=== PATIENT | male | born 1960 | race Caucasian/White ===

== ENCOUNTER 2017-07-02 21:57 | Emergency (ER) | payer BC ==
[2017-07-02] MEDS: GLUCAGON,HUMAN RECOMBINANT 1 MG/ML VIAL. IV ×2 (22:45)
[2017-07-02] MEDS ORDERED: PROPOFOL 20 ML IV ×2 (23:14)
[2017-07-02 23:17] LABS: ADD MAN DIFF? NO
[2017-07-02 23:32] LABS: PARTIAL THROMBOPLASTIN TIME 27 SEC (24-38); PROTHROMBIN TIME PATIENT 12.5 SEC (11.7-14.0)
[2017-07-02 23:36] LABS: ANION GAP 10 (6-14); BLOOD UREA NITROGEN 10 mg/dL (8-26); BUN/CREATININE RATIO 9 (6-20); CALCIUM 8.3 mg/dL (8.5-10.1); CARBON DIOXIDE 28 mmol/L (21-32); CHLORIDE 103 mmol/L (98-107); CREATININE 1.1 mg/dL (0.7-1.3); GFR 69.8; GLUCOSE 101 mg/dL (70-99); POTASSIUM 3.8 mmol/L (3.5-5.1); SODIUM 141 mmol/L (136-145)
[2017-07-02 23:37] LABS: BASO % 1 % (0-3); EOS # 0.2 x10^3/uL (0.0-0.7); EOS % 4 % (0-3); HEMATOCRIT 46.9 % (39.0-53.0); HEMOGLOBIN 16.1 g/dL (13.0-17.5); LYMPH # 1.5 x10^3/uL (1.0-4.8); LYMPH % 26 % (24-48); MEAN CORPUSCULAR HEMOGLOBIN 33 pg (25-35); MEAN CORPUSCULAR HGB CONC 34 g/dL (31-37); MEAN CORPUSCULAR VOLUME 96 fL (79-100); MONO # 0.4 x10^3/uL (0.0-1.1); MONO % 6 % (0-9); NEUT # 3.6 x10^3uL (1.8-7.7); NEUT % 63 % (31-73); PLATELET COUNT 208 x10^3/uL (140-400); RED CELL DISTRIBUTION WIDTH 12.5 % (11.5-14.5); WHITE BLOOD COUNT 5.8 x10^3/uL (4.0-11.0)
[2017-07-02 23:47] LABS: ALBUMIN 3.7 g/dL (3.4-5.0); ALBUMIN/GLOBULIN RATIO 0.9 (1.0-1.7); ALK PHOS 78 U/L (46-116); ALT (SGPT) 51 U/L (16-63); AST (SGOT) 23 U/L (15-37); TOTAL BILIRUBIN 0.7 mg/dL (0.2-1.0); TOTAL PROTEIN 7.7 g/dL (6.4-8.2)
== END 2017-07-02 23:09 | disposition other institution (70) ==
LOC: ER 23:09
DX: T18.128A Food in esophagus causing other injury, initial encounter (principal); X58.XXXA Exposure to other specified factors, initial encounter; Y93.89 Activity, other specified; Y92.89 Other specified places as the place of occurrence of the external cause; Y99.8 Other external cause status
CPT/HCPCS: 36415; 80053; 85025; 85610; 85730; 96374; 99285-25; J1610; J2704

== ENCOUNTER → 2020-04-12 | Outpatient (CLI) | payer BC ==
[2017-07-02 23:43] VITALS: BP 177/80
[2020-04-12 13:28] LABS: BASO % 0 % (0-3); EOS % 1 % (0-3); HEMATOCRIT 44.5 % (39.0-53.0); HEMOGLOBIN 15.5 g/dL (13.0-17.5); LYMPH # 1.2 x10^3/uL (1.0-4.8); LYMPH % 17 % (24-48); MEAN CORPUSCULAR HEMOGLOBIN 33 pg (25-35); MEAN CORPUSCULAR HGB CONC 35 g/dL (31-37); MEAN CORPUSCULAR VOLUME 95 fL (79-100); MONO # 0.4 x10^3/uL (0.0-1.1); MONO % 6 % (0-9); NEUT # 5.7 x10^3/uL (1.8-7.7); NEUT % 77 % (31-73); PLATELET COUNT 191 x10^3/uL (140-400); RED BLOOD COUNT 4.68 x10^6/uL (4.30-5.70); RED CELL DISTRIBUTION WIDTH 12.3 % (11.5-14.5); WHITE BLOOD COUNT 7.4 x10^3/uL (4.0-11.0)
[2020-04-12 13:50] LABS: ALBUMIN 3.8 g/dL (3.4-5.0); ALBUMIN/GLOBULIN RATIO 1.1 (1.0-1.7); CALCIUM 8.8 mg/dL (8.5-10.1); CREATININE 1.1 mg/dL (0.7-1.3); POTASSIUM 3.8 mmol/L (3.5-5.1); TOTAL BILIRUBIN 1.2 mg/dL (0.2-1.0); TOTAL PROTEIN 7.2 g/dL (6.4-8.2)
== END ==
LOC: LAB 12:45
PROVIDERS: ATTEND Specialist
DX: Z01.812 Encounter for preprocedural laboratory examination (principal); Z20.828 Contact with and (suspected) exposure to other viral communicable diseases
CPT/HCPCS: 80053; 85025; 85610; U0003

== ENCOUNTER 2020-04-17 07:22 | Day surgery (SDC) | payer BC ==
[~2020-04-17] VITALS: Ht 182.9 cm; Wt 104.3 kg
--- NOTE | 2020-04-17 06:53 | PREOP HP ---
DATE OF SERVICE: HISTORY OF PRESENT ILLNESS: The patient has had an abdominal wall pain and is referred to me for the same. He had a mass near the umbilicus, which now is beginning to cause pain. He has never had it before, it started about 2-3 months ago. This has gotten larger and more painful and he wishes it repaired. PAST MEDICAL HISTORY: Shows that he does not have high blood pressure, TB, asthma or any other diseases to his knowledge. He has had normal childhood diseases. 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 ALLERGIES: He has no allergies. MEDICATIONS: He takes no medicine. SOCIAL HISTORY: Does not drink. He does not smoke, but drinks only socially and does not use illicit drugs. FAMILY HISTORY: Noncontributory. REVIEW OF SYSTEMS: Negative except for the painful umbilicus to deep touch. Otherwise, no difficulties. PHYSICAL EXAMINATION: GENERAL: Shows an alert male, in no acute distress. HEAD, EYES, NOSE AND THROAT: Grossly normal. CHEST: Clear to auscultation bilaterally. HEART: Had no murmurs at a rate of 74 beats per minute, was regular and no heaves or friction rubs. ABDOMEN: Soft, no organomegaly was noted. He did have a small mass at the umbilicus and it increases with increase in intra-abdominal pressure. This is at and above the umbilicus. Cannot tell if it is a ventral or umbilical hernia, but they are close together. Had a mass that could not be reduced and was painful. He does not have GI symptoms, however. EXTREMITIES: Grossly normal. RECTAL: Not done. IMPRESSION: Ventral/umbilical hernia. He wishes to have it repaired. I concur him, we plan to repair the abdominal wall hernia. He does understand the risk and understands that we suggest no strenuous activity for 6-8 weeks post-surgery. RUTH MCCONNELL MD DR: PAYTON/krystle JOB#: [id number] / [id number]
[~2020-04-17 07:22] MED LIST: BUPIVACAINE-EPI 0.5%-1:200000 MPF 30 ML VIAL. INJ ONE; HYDROmorphone 2 MG/ML VIAL IV PRN; IV RINGERS,LACTATED 1000ML 1,000 ML IV SCH; MORPHINE SULFATE 2 MG/ML VIAL. IV PRN; ONDANSETRON PF 4 MG/2 ML VIAL. IV PRN; PROCHLORPERAZINE 10 MG/2 ML VIAL. IV PRN; ceFAZolin SODIUM IV Push 1 GM VIAL. IVP PRN; fentaNYL PF VIAL 100 MCG/2 ML VIAL IV PRN
[2020-04-17] MEDS ORDERED: PROPOFOL 10 MG/ML (20ML) VIAL. IV ONE ×2 (08:34→10:01)
[2020-04-17] MEDS ORDERED: LIDOCAINE 2% PF 5 ML VIAL. ONE (08:34)
[2020-04-17] MEDS ORDERED: fentaNYL PF VIAL 100 MCG/2 ML VIAL ONE ×3 (08:35→12:46)
[2020-04-17] MEDS ORDERED: ROCURONIUM 50 MG/5 ML VIAL. ONE (08:35)
[2020-04-17] MEDS ORDERED: SUCCINYLCHOLINE 200 MG/10 ML VIAL. ONE (08:35)
--- NOTE | 2020-04-17 09:18 | PDOC ---
SURGICAL PROGRESS NOTE DATE: 04/17/20 TIME: 09:17 No change i dictated H&P. Vital Signs Vital Signs Date Time Temp Pulse Resp B/P (MAP) Pulse Ox O2 Delivery O2 Flow Rate FiO2 04/17/20 07:51 97.6 75 20 96 97.6 04/17/20 07:37 112/78 Room Air Justicifation of Admission Dx: Justifications for Admission: Justification of Admission Dx: Yes RUTH MCCONNELL MD Apr 17, 2020 09:18
--- NOTE | 2020-04-17 09:21 | PDOC ---
SURGICAL PROGRESS NOTE DATE: 04/17/20 TIME: 09:18 Op Note: Surgeon.......................................................[place] Pre op diag...................................................Incarcerated Ventral hernia and umbilical hernia Post op diag.................................................same Anesthesia..................................................general Procedure...................................................repair incarcerate ventral and umbilical hernia hernia Blood loss....................................................7cc Fluids..........................................................see anesthesia sheet Drains.........................................................none Condition....................................................satisfactory Vital Signs Vital Signs Date Time Temp Pulse Resp B/P (MAP) Pulse Ox O2 Delivery O2 Flow Rate FiO2 04/17/20 07:51 97.6 75 20 96 97.6 04/17/20 07:37 112/78 Room Air Justicifation of Admission Dx: Justifications for Admission: Justification of Admission Dx: Yes RUTH MCCONNELL MD Apr 17, 2020 09:21
[2020-04-17] MEDS ORDERED: DEXAMETHASONE SOD PHOS 4 MG/ML VIAL ONE (09:45)
[2020-04-17] MEDS ORDERED: DESFLURANE 61 TO 120 MINUTES IH ONE (09:46)
[2020-04-17] MEDS ORDERED: ONDANSETRON PF 4 MG/2 ML VIAL. ONE (09:46)
[2020-04-17] MEDS ORDERED: GLYCOPYRROLATE 1 MG/5 ML VIAL. ONE (10:14)
[2020-04-17] MEDS ORDERED: NEOSTIGMINE METHYLSULFATE 5 MG/5 ML SYRINGE. ONE (10:15)
[2020-04-17] MEDS ORDERED: oxyCODONE/APAP 5/325 1 TAB TABLET PO ONE (10:45)
[2020-04-17] MEDS ORDERED: oxyCODONE/APAP 7.5/325 1 TAB TABLET PO ONE ×2 (10:45→12:30)
[2020-04-17] MEDS ORDERED: BUPIVACAINE MPF 0.5% 30 ML VIAL. ONE (10:50)
[2020-04-17] MEDS ORDERED: BUPIVACAINE-EPI 0.5%-1:200000 MPF 30 ML VIAL. INJ ONE (11:00)
[2020-04-17] MEDS ORDERED: KETOROLAC 30 MG/ML VIAL. ONE (11:30)
--- NOTE | 2020-04-17 11:33 | DISCH ---
DISCHARGE INSTRUCTIONS Condition on Discharge Condition on Discharge: Stable Activity After Discharge Activity Instructions for Disc: Avoid exertion Other activity instructions: no strenuous activity for 8 weeks Diet after Discharge Diet after Discharge: Clear Liquid Wound Incision Care Wound/Incision Care: No wound care needed Other wound/incision instructi: Do not change dressing may shower after 48 hours Follow-Up Follow up with: Dr. Mcconnell 14 days RUTH MCCONNELL MD Apr 17, 2020 11:33
[2020-04-17] MEDS ORDERED: OXYC1TAB19 PO (11:38)
[2020-04-17] MEDS ORDERED: KETOROLAC 30 MG/ML VIAL. IVP ONE (11:45)
[2020-04-17] MEDS: fentaNYL PF VIAL 100 MCG/2 ML VIAL IV PRN ×3 (11:51→12:50)
[2020-04-17 12:11] VITALS: BP 120/84
--- NOTE | 2020-04-22 01:21 | OP ---
DATE OF SURGERY: 04/17/2020 SURGEON: Usman Mcconnell MD PREOPERATIVE DIAGNOSIS: Anterior abdominal wall hernia. POSTOPERATIVE DIAGNOSES: Incarcerated ventral hernia and incarcerated umbilical hernia. ANESTHESIA: General. PROCEDURES: Repair of incarcerated ventral hernia with mesh and also repair of umbilical hernia. ANESTHESIA: General. TECHNIQUE: Under general anesthesia, the patient was properly prepped and draped in the routine fashion. As we thought this might be an umbilical hernia, we made a supraumbilical incision in a transverse fashion and carried down through the skin. As we got into the area, we then went through the skin with a 15 blade and using Bertin retractors, we retracted superiorly and inferiorly. We used Metzenbaum scissors to identify the hernia sac, went around it and it was obvious that the sac was not at the umbilicus. We slowly isolated this and also then saw there was a small umbilical hernia. We could not reduce the ventral hernia, which was a centimeter or two above the umbilicus. As such, we made an incision in the fascia going down through the umbilical area and then opened this up and we were able to reduce them. The sac at the umbilicus was taken off the skin and though the skin was not damaged or incised at the umbilicus. The hernia now been repaired, we used finger dissection to get all the preperitoneal fat away from the area, so that we could put a patch there. We decided to use a patch, which was Phasix and placed this, I think it was the largest 6-8 cm patch there. It had a tag. We then tacked it up by using a tacker and laid flat against the anterior abdominal wall. We then closed the wound in a transverse fashion using interrupted #1 Prolene sutures. This having been done, we did incorporate the mesh into this so that it would be approximated and tied. We then inspected the wound. There was a good closure of the hernia and 0.5% Marcaine with epinephrine was used to anesthetize the fascia. Subcutaneous was irrigated with saline and then approximated using 4-0 Vicryl and the umbilicus was sutured down to the fascia, so we did have a normal looking umbilicus. This having been done, we then approximated the skin using a subcuticular 5-0 Vicryl. Sterile Tegaderm dressing was applied and the procedure was terminated. ESTIMATED BLOOD LOSS: About 7 mL. Fluids given can be obtained from the anesthesia sheet. No drains were used. Condition of the patient was satisfactory as he has returned to the recovery room. USMAN MCCONNELL MD DR: PAYTON/krystle JOB#: [id number] / [id number]
== END 2020-04-17 12:56 | disposition home or self-care (01) ==
LOC: SURG 07:22
PROVIDERS: ATTEND Specialist
DX: K43.6 Other and unspecified ventral hernia with obstruction, without gangrene (principal); K42.0 Umbilical hernia with obstruction, without gangrene; Z79.899 Other long term (current) drug therapy; Z98.890 Other specified postprocedural states
CPT/HCPCS: 49561; 49568; 49587; C1781; J0330; J0690; J1100; J1885; J2405; J2704; J2710; J3010; J3490; J7120